=== PATIENT | male | born 1965 | race Caucasian/White ===

== ENCOUNTER → 2023-08-23 | Day surgery (SDC) | payer BC ==
[~2023-08-23] MED LIST: Ketamine 200 MG/20 ML MDV ONE; Ketorolac 30 MG/ML SDV ONE; Lactated Ringers 1,000 ML IV SCH; Lidocaine 1% with EPINEPHrine 1:100,000 20 ML MDV INJECT ONE; Metoclopramide 10 MG/2 ML SDV ONE; Midazolam 1 MG/ML 2 ML SDV ONE; Morphine 4 MG/ML VIAL ONE; Ondansetron 4 MG/2 ML SDV ONE; Propofol 200 MG/20 ML SDV ONE; fentaNYL 50 MCG/ML SDV ONE
== END ==
LOC: CC.SDS 07:00
PROVIDERS: ATTEND Surgery
DX: K42.9 Umbilical hernia without obstruction or gangrene (principal); I10 Essential (primary) hypertension; Z79.899 Other long term (current) drug therapy
CPT/HCPCS: 00830; J1885; J2250; J2270; J2405; J2704; J2765; J3010; J3490; J7120